=== PATIENT | male | born 1945 ===

== ENCOUNTER 2016-11-03 07:15 | Day surgery (SDC) | payer MEDICARE ==
[~2016-11-03 07:15] MED LIST: BALANCED SALT IRRIG SOLN COMB1 500 ML, VANCOMYCIN FOR BSS PLUS 10 MG, GENTAMICIN SULFAT... IO ONE; VANCOMYCIN FOR CATARACT SURGERY MC ONE
[2016-11-03] MEDS ORDERED: CIPROFLOXACIN 0.3% OPHT DROP 2.5 ML BOTTLE ONE (07:36)
[2016-11-03] MEDS ORDERED: TROPICAMIDE 1% OPHT DROP 3 ML BOTTLE ONE (07:36)
[2016-11-03] MEDS ORDERED: FLURBIPROFEN 0.03% OPHT DROP 2.5 ML BOTTLE ONE (07:36)
[2016-11-03] MEDS ORDERED: PHENYLEPHRINE 2.5% OPHT DROP 2 ML BOTTLE ONE (07:37)
[2016-11-03] MEDS ORDERED: CYCLOPENTOLATE 1% OPHT DROP 2 ML BOTTLE ONE (07:37)
[2016-11-03] MEDS ORDERED: LIDOCAINE-MPF 2% 5 ML VIAL ONE (08:04)
[2016-11-03] MEDS ORDERED: EPINEPHRINE 1 MG/1 ML AMP ONE (08:05)
[2016-11-03] MEDS ORDERED: TETRACAINE HCL 0.5% OPHT DROP 2 ML BOTTLE ONE (08:05)
[2016-11-03] MEDS ORDERED: NEO/POLYMYX B/DEXAME OPHT OINT 3.5 GM TUBE ONE (08:05)
[2016-11-03] MEDS ORDERED: LIDOCAINE HCL-MPF 1% 5 ML VIAL ONE (08:05)
[2016-11-03] MEDS ORDERED: TIMOLOL MALEATE 0.5% OPHT DROP 5 ML BOTTLE ONE (08:05)
[2016-11-03] MEDS ORDERED: BALANCED SALT IRRIG SOLN COMB2 15 ML IRRIG.SOLN ONE (08:08)
[2016-11-03] MEDS ORDERED: HYALURONATE SODIUM 12.8 MG/0.8 ML DISP.SYRIN ONE (08:11)
[2016-11-03] MEDS ORDERED: BUPIVACAINE PF 0.5% 30 ML VIAL ONE (08:11)
[2016-11-03] MEDS ORDERED: HYALURONATE SODIUM 8.5 MG/0.85 ML DISP.SYRIN ONE (08:11)
[2016-11-03] MEDS ORDERED: HYALURONIDASE,OVINE 200 UNITS/ML VIAL ONE (08:11)
[2016-11-03] MEDS ORDERED: PROPOFOL 200 MG/20 ML BOTTLE IV ONE (08:12)
[2016-11-03] MEDS ORDERED: ACETYLCHOLINE CHLORIDE 1% OPHT 1 EA KIT ONE (08:13)
[2016-11-03] MEDS ORDERED: FENTANYL CITRATE 100 MCG/2 ML AMPUL ONE (08:23)
[2016-11-03] MEDS ORDERED: BALANCED SALT IRRIG SOLN COMB1 500 ML ONE (08:44)
== END 2016-11-03 10:30 ==
LOC: DS 07:15
PROVIDERS: ATTEND Ophthalmology
DX: H26.9 Unspecified cataract (principal); I10 Essential (primary) hypertension; E11.9 Type 2 diabetes mellitus without complications; F31.9 Bipolar disorder, unspecified
CPT/HCPCS: 66984; 71010; 82962; A4663; J0171 ×2; J1580; J3010; J3370 ×2; J3471; J3490 ×4; J7030; J7321 ×2; V2632